=== PATIENT | female | born 1980 | race Two or more races ===

== ENCOUNTER → 2017-04-12 | Outpatient (CLI) | payer OTHER | LOC: FIMAGING 13:12 | PROVIDERS: ATTEND Midwife | DX: O09.522 Supervision of elderly multigravida, second trimester (principal); Z3A.19 19 weeks gestation of pregnancy ==

== ENCOUNTER 2017-08-27 01:29 | Inpatient (IN) | payer OTHER ==
[2017-08-27] MEDS ORDERED: OXYTOCIN 20 UNIT in LR 1,000 ML IV PRN (01:36)
[2017-08-27] MEDS ORDERED: LR 1,000 ML IV PRN (01:36)
[2017-08-27] MEDS ORDERED: TERBUTALINE SULFATE 1 MG/ML VIAL IV PRN (01:36)
[2017-08-27] MEDS ORDERED: EPSOM SALT 454 GM TP PRN (01:36)
[2017-08-27] MEDS ORDERED: MISOPROSTOL 200 MCG TAB PR PRN (01:36)
[2017-08-27] MEDS ORDERED: OLIVE OIL 118 ML BTL MISC PRN (01:36)
[2017-08-27] MEDS ORDERED: TERBUTALINE SULFATE 1 MG/ML VIAL ONE (01:44)
[2017-08-27] MEDS ORDERED: OXYTOCIN 10 UNIT/ML VIAL ONE (01:44)
[2017-08-27] MEDS ORDERED: LIDOCAINE 1% 300 MG/30 ML SDV ONE (01:44)
[2017-08-27] MEDS ORDERED: OLIVE OIL 118 ML BTL ONE (01:44)
[2017-08-27] MEDS ORDERED: AMMONIA AROMATIC 1 EACH AMP IH ONE (01:44)
[2017-08-27] MEDS ORDERED: MISOPROSTOL 200 MCG TAB ONE (01:44)
[2017-08-27 01:46] LABS: PLATELET COUNT 182 10^3/uL (150-400)
[2017-08-27] MEDS ORDERED: fentanYL 4MCG/ML/BUP 0.0625% RTU 250 ML BAG EP ONE (01:54)
[2017-08-27] MEDS ORDERED: PHENYLEPHRINE HCL 100 MCG/ML SYR ONE (01:55)
--- NOTE | 2017-08-27 02:24 | PREANESOB ---
Obstetric Pre-Anesthesia Info - General Info Proposed Procedure: Labor Epidural : 3 Para: 1 - Info Status: Full Term FHR Pattern: Reassuring - Labor Status Cervical Dilation per last OB SVE: 7 Labor Epidural: Yes Anesthesia Visit Medications: Generic Name Dose Route Start Last Admin Trade Name Freq PRN Reason Stop Dose Admin Lactated Ringer's 1,000 mls @ 0 mls/hr 08/27/17 01:36 Lr IV 08/28/17 01:35 PRN PRN SEE PROTOCOL CONDITIONS Protocol Per Protocol Oxytocin 20 unit/ Lactated 1,002 mls @ 150 mls/hr 08/27/17 01:36 Ringer's IV PRN PRN Post- bleeding Ibuprofen 600 mg 08/27/17 01:36 Motrin PO 02/23/18 01:35 Q6HRS PRN post , inflammation Magnesium Sulfate 454 gm 08/27/17 01:36 Epsom Salt TP 02/23/18 01:35 Q1H PRN perineal discomfort Misoprostol 800 - 1,000 mcg 08/27/17 01:36 Cytotec MI ONCE PRN Vaginal Atony/Bleeding [place] Oil 118 ml 08/27/17 01:36 Sweet Oil MISC 02/23/18 01:35 ONCE PRN perineal massage Terbutaline Sulfate 0.25 mg 08/27/17 01:36 Brethine IV 02/23/18 01:35 ONCE PRN Tachysystole Discontinued Medications Generic Name Dose Route Start Last Admin Trade Name Moyq PRN Reason Stop Dose Admin Ammonia (Aromatic Spirit) Confirm 08/27/17 01:44 Ammonia Aromatic Administered 08/27/17 01:45 Dose 1 each IH .STK-MED ONE Fentanyl/Bupivacaine HCl Confirm 08/27/17 01:54 Fentanyl/Bupivacaine/Ns 4 Mcg/Ml 0.0625%(Rtu) Administered 08/27/17 01:55 Dose 250 ml EP .STK-MED ONE Lidocaine HCl Confirm 08/27/17 01:44 Lidocaine Hcl 1% Administered 08/27/17 01:45 Dose 300 mg .ROUTE .STK-MED ONE Misoprostol Confirm 08/27/17 01:44 Cytotec Administered 08/27/17 01:45 Dose 1,000 mcg .ROUTE .STK-MED ONE [place] Oil Confirm 08/27/17 01:44 Sweet Oil Administered 08/27/17 01:45 Dose 118 ml .ROUTE .STK-MED ONE Oxytocin Confirm 08/27/17 01:44 Pitocin Administered 08/27/17 01:45 Dose 40 unit .ROUTE .STK-MED ONE Phenylephrine HCl Confirm 08/27/17 01:55 Neosynephrine Administered 08/27/17 01:56 Dose 1,000 mcg .ROUTE .STK-MED ONE Terbutaline Sulfate Confirm 08/27/17 01:44 Brethine Administered 08/27/17 01:45 Dose 1 mg .ROUTE .STK-MED ONE Labs: 08/27/17 01:30
[2017-08-27] MEDS ORDERED: ONDANSETRON 4 MG/2 ML VIAL IVP PRN (02:25)
[2017-08-27] MEDS ORDERED: PHENYLEPHRINE HCL 100 MCG/ML SYR IVP PRN (02:25)
[2017-08-27] MEDS ORDERED: fentaNYL 4MCG/ML/BUP 0.0625% R 250 ML EP SCH (02:30)
[2017-08-27] MEDS ORDERED: LR 500 ML IV SCH (02:30)
--- NOTE | 2017-08-27 03:11 | GHP ---
[f rep st] HISTORY AND PHYSICAL DATE OF ADMISSION: 08/27/2017 The patient is a 37-year-old G3, P1, A1 at 38+ weeks' gestation with an estimated due date of 09/04/2017 with symptoms of rupture of membranes at 2345 with spontaneous onset of contractions shortly thereafter. Patient had clear fluid and a history of a GBS negative. After the contractions became increasingly uncomfortable, the patient headed into Labor and Delivery. Upon first exam, the patient was 5 cm dilated, but made rapid progress to 7-8 cm. PAST OBSTETRIC LABORATORIES: Maternal blood type not documented on the records from [facility]. RPR nonreactive. Hepatitis B surface antigen negative. Hepatitis C negative. HIV negative. Rubella immune. HSV negative. 1-hour Glucola was normal. Initial blood count was normal at 13 and 40, and then repeat H and H in mid were 12 and 35. Patient was advised to be on low -dose iron. TSH 2.5. PAST MEDICAL HISTORY: Negative. PAST SURGICAL HISTORY: Negative. PAST OBSTETRIC HISTORY: An early loss. In her 2nd , the patient had a 36-week vaginal delivery of a 4-pound baby girl who was diagnosed with Down syndrome. Patient had a rapid labor, less than 2 hours, and pushed only 2-3 times. This was an unmedicated delivery in [place]. ALLERGIES: The patient has no known drug allergies. CURRENT MEDICATIONS: vitamins and iron. SOCIAL HISTORY: The patient is , lives with her and their daughter. Patient is a nonsmoker. No alcohol or drug use. PHYSICAL EXAMINATION GENERAL: Upon admission, the patient is a well-developed , thin, [place] female in significant discomfort upon arrival. The patient is afebrile with normal vital signs. See nursing documentation for full details. The patient requested an epidural, and things were quickly processed to get that done for her. heart tone monitoring revealed a category 1 tracing in the 130s with good variability and accelerations. No decelerations noted. Contractions every 2-3 minutes. PELVIC: There were grossly ruptured membranes with blood-tinged fluid. As noted above, the cervix initially was 5 cm, but quickly changed to 7-8 cm. After the epidural, the patient was noted to be 8 cm , 90% effaced, at 0 station. EXTREMITIES: Nontender and no edema. ASSESSMENT: Intrauterine at 38+ weeks gestation, spontaneous rupture of membranes with rapid progression of labor. Group B streptococcus negative. Recent transfer from [facility] at 36 weeks. PLAN: Expect vaginal delivery soon. Confirming blood type with initial lab draws. /[id number]/MODL and [id number] and [id number] [facility]
[2017-08-27] MEDS ORDERED: HYDROCORTISONE 0.5% CREAM TP PRN (05:11)
[2017-08-27] MEDS ORDERED: DOCUSATE SODIUM 100 MG CAP PO PRN (05:11)
[2017-08-27] MEDS ORDERED: HYDROCODONE/APAP 5/325 TAB PO PRN (05:11)
--- NOTE | 2017-08-27 05:16 | OBDEL ---
Info Type: Vaginal Presentation at Delivery: Vertex L&D Analgesia/Anesthesia Type: Epidural GBS+: No - Hospital Course Intrapartum: 08/27/17 05:14 SROM and SOOC with rapid progress from 5 - 8 cm, KRISTINE given up arrival. Pushed approx 1 hr and 20 min - very tight descent through bony pelvis - very painful despite KRISTINE Indications for Delivery: Spontaneous Labor, SROM Vaginal Delivery - Delivery Provider Delivery Physician/CNM: Jazmin Taylor - Labor and Delivery Onset of Contractions Date: 08/27/17 Onset of Contractions Time: 00:00 Onset of Contractions Type: Spontaneous Rupture of Membranes Date: 08/26/17 Rupture of Membranes Time: 23:45 Rupture of Membranes Type: Spontaneous Amniotic Fluid Color: Clear Dilation Complete Date: 08/27/17 Dilation Complete Time: 03:01 Placenta Delivery Date: 08/27/17 Placenta Delivery Time: 04:29 Total Hours of Labor: 4 Episiotomy: Midline Laceration: 2nd Degree Repair: 3-0, Vicryl Vaginal Sponge Count Correct: Yes Vaginal Needle Count Correct: Yes Vaginal Sweep Performed: Yes EBL: 300 - Medications Labor Augmentation/Induction Methods Used: None [place] Data TOY: 09/04/17 Gestational Age: 38 week(s) and 6 day(s) Luong Delivery Date: 08/27/17 Delivery Time: 04:22 Sex of : Male Score (1 Min): 8 Score (5 Min): 9 ICD10 Worksheet Patient Problems: Problems Problem Status Onset (spontaneous vaginal delivery) Acute
[2017-08-27] MEDS: IBUPROFEN 600 MG TAB PO PRN ×3 (05:20→18:10)
--- NOTE | 2017-08-27 06:49 | POSTANESTH ---
Post Anesthetic Evaluation Cardiovascular Status: Normal, Stable Respiratory Status: Normal, Stable Level of Consciousness/Mental Status: Can Participate in Eval, Alert and Oriented Pain Control: Adequate, Prn Tx Ordered Nausea/Vomiting Control: Adequate, Prn Tx Ordered (Labor Epidural End Time @ 04: 29 - no concerns or complaints)
--- NOTE | 2017-08-27 11:26 | PDMN ---
Medical Necessity Medical necessity: Patient meets inpatient criteria per physician note and MCG S -[id number] Vaginal Delivery.
[2017-08-27 20:14] VITALS: RESP 16
[2017-08-28] MEDS: IBUPROFEN 600 MG TAB PO PRN ×2 (04:20→10:38)
[2017-08-28 08:58] VITALS: BP 103/69; PULSE 85; TEMP 98; O2SAT 94
--- NOTE | 2017-08-28 09:20 | OBPP ---
Progress Note Assessment/Plan: Assessment: Plan: Objective: 08/27/17 01:30 Patient ABO/Rh O POSITIVE 08/27/17 01:30 Temp Pulse Resp BP Pulse Ox 36.7 C 85 16 103/69 94 08/28/17 08:00 08/28/17 08:00 08/28/17 08:00 08/28/17 08:00 08/28/17 08:00
--- NOTE | 2017-08-28 10:04 | OBGCSDC ---
General Delivery Information - General Info : 3 Para: 2 Abortions: 1 Type: Vaginal L&D Analgesia/Anesthesia Type: Epidural Admission Date: 08/27/17 Labs: Patient ABO/Rh O POSITIVE 08/27/17 01:30 Hct 38.9 % (38.0-47.0) 08/27/17 01:30 - Hospital Course Intrapartum: 08/27/17 05:14 SROM and SOOC with rapid progress from 5 - 8 cm, KRISTINE given up arrival. Pushed approx 1 hr and 20 min - very tight descent through bony pelvis - very painful despite KRISTINE : 08/28/17 09:55 S) Pt doing well, reports min pain and bleeding. she is ambulating and voiding without difficulty. She is . She desires discharge home today. O) VSS, afebrile constitutional: WNWF, A&Ox3 HEENT: normocephalic, atraumatic, supple Heart: RRR, No murmur Chest: CTA-B Abdomen:~ Soft, nontender Uterus:~ Firm at U-2 Lochia:~ Minimal rubra Perineum:~ Episiotomy intact, healing well Extremities:~ Trace edema, and negative Philip's sign Neuro:~ Grossly normal A) 37-year-old S/P PPD#1 P) Discharge home today Continue Pelvic rest x6wks Discussed danger signs (infection, preeclampsia, depression, heavy bleeding, etc ) RTO in 4/6 weeks Vaginal - Delivery Provider Delivery Physician/CNM: Jazmin Taylor - Diagnosis Labor: Spontaneous Rupture of Membranes Type: Spontaneous Amniotic Fluid Color: Clear Episiotomy: Midline Laceration: 2nd Degree Repair: 3-0, Vicryl - Delivery EBL: 300 Data TOY: 09/04/17 Gestational Age: 39 week(s) and 0 day(s) Luong Delivery Date: 08/27/17 Delivery Time: 04:22 Sex of : Male [place] Weight (gm): 3250 kg Score (1 Min): 8 Score (5 Min): 9 Discharge Information - Discharge Information Prescriptions: Ibuprofen [Motrin (*)] 600 mg PO Q6HRS PRN #30 tab PRN Reason: post , inflammation Condition: Good
== END 2017-08-28 17:30 | disposition home or self-care (01) | DRG 775 ==
LOC: FLD 01:29 → FOB 09:24
PROVIDERS: ADMIT Obstetrics & Gynecology; ATTEND Obstetrics & Gynecology
PROC: 10E0XZZ Delivery of Products of Conception, External Approach (ICD-10-PCS; principal; 2017-08-27)
PROC: 0KQM0ZZ Repair Perineum Muscle, Open Approach (ICD-10-PCS; principal; 2017-08-27)
DX: O70.1 Second degree perineal laceration during delivery (principal); Z37.0 Single live birth; Z3A.38 38 weeks gestation of pregnancy
CPT/HCPCS: J2370; J2590; J3105